=== PATIENT | male | born 1995 | race Caucasian/White ===

== ENCOUNTER 2022-06-21 17:02 | Emergency (ER) | payer OTHER, SELFPAY ==
[2022-06-21 17:23] VITALS: BP 119/68; PULSE 55; RESP 18; TEMP 36.7; O2SAT 98; BMI 21.9
--- NOTE | 2022-06-21 17:24 | ED_ITS ---
HPI - Eye Problem General Chief complaint: Eye Problems <YA Conway - Last Filed: 06/21/22 17:27> Stated complaint: eye injury <YA Conway - Last Filed: 06/21/22 17:27> Time Seen by Provider: 06/21/22 18:10 <YA Conway - Last Filed: 06/21/22 17:27> Source: patient, RN notes reviewed and old records reviewed <Noam Crane - Last Filed: 06/21/22 18:24> Mode of arrival: ambulatory <Noam Crane - Last Filed: 06/21/22 18:24> History of Present Illness HPI Narrative: 27-year-old male presents for evaluation of right eyelid redness and swelling. He reports this started 2 days ago but got worse overnight. Reports this morning was unable to open the eye but he is able to do so now He did not get anything in the eye that he can remember Patient does not believe there was any injury to the eye He reports that he has a frequent history of styes He has seen ophthalmology in the past for this He reports that he has been using warm compresses without any improvement He wears glasses but not contacts No other complaints or concerns at this time <Noam Crane - Last Filed: 06/21/22 18:24> Related Data Home medications: Previous Rx's Medication Instructions Recorded erythromycin 5 mg/gram (0.5 %) eye 1 appl ophthalmic-Right TID #3.5 06/21/22 ointment grams <YA Conway - Last Filed: 06/21/22 17:27> Allergies/adverse reactions: Allergies Allergy/AdvReac Type Severity Reaction Status Date / Time No Known Allergies Allergy Verified 06/21/22 17:25 <YA Conway - Last Filed: 06/21/22 17:27> Review of Systems Constitutional: Constitutional: Denies headache(s) <Noam Crane - Last Filed: 06/21/22 18:24> Eyes: Eyes: Reports eye discharge, Reports irritation, Reports itchy eyes, Denies loss of vision, Denies other visual disturbances, Reports eye pain and Denies seeing flashes <Noam Crane - Last Filed: 06/21/22 18:24> ENT: Denies headache(s) <Noamhiral Crane - Last Filed: 06/21/22 18:24> Neurologic: Denies headache(s) and Denies loss of vision <Noamhiral Crane - Last Filed: 06/21/22 18:24> Allergic/Immunologic: Allergic/Immunologic: Reports itchy eyes <Noam LeenaMaximilianoMatthias - Last Filed: 06/21/22 18:24> Physical Exam Vital Signs: Vital Signs: Last Vital Signs Temp 98.0 F 06/21/22 17:23 Pulse 55 06/21/22 17:23 Resp 18 06/21/22 17:23 BP 119/68 06/21/22 17:23 Pulse Ox 98 06/21/22 17:23 O2 Del Method Room Air 06/21/22 17:23 BMI result Body Mass Index 21.9 <YA Conway - Last Filed: 06/21/22 17:27> Vital Signs: Last Vital Signs Temp 98.0 F 06/21/22 17:23 Pulse 55 06/21/22 17:23 Resp 18 06/21/22 17:23 BP 119/68 06/21/22 17:23 Pulse Ox 98 06/21/22 17:23 O2 Del Method Room Air 06/21/22 17:23 BMI result Body Mass Index 21.9 <Noam OMaximilianoMatthias - Last Filed: 06/21/22 18:24> Const: General: cooperative, healthy appearing and comfortable <Noam [place] - Last Filed: 06/21/22 18:24> Nutritional Appearance: well nourished <Noam OMaximilianoMatthias - Last Filed: 06/21/22 18:24> Orientation/consciousness: patient oriented x3 <Noam LeenaMaximilianoMatthias - Last Filed: 06/21/22 18:24> Limitations: no limitations <Noamhiral Crane - Last Filed: 06/21/22 18:24> Eyes: Other: Patient has right upper eyelid edema with a stye approximately the the center of the eyelid. The conjunctiva is normal without injection, no obvious foreign body noted. No increased fluorescein uptake or ulcerations noted. Extraocular motions intact. There is no erythema in the periorbital region of sided right upper eyelid. Nontender with palpation around the orbit <Noam Crane - Last Filed: 06/21/22 18:24> Neuro: General: patient oriented x3 <Noam Crane - Last Filed: 06/21/22 18:24> Course Course Course Narrative: RME - patient stated he had pain in his right eye that began 3 days ago followed by swelling the next day. He denied any trauma or injury. He stated he feels like there is something in his eye and has crusting when he wakes up in the morning. Patient denies vision changes. He normally wears glasses, no contacts. Plan: fluorescine, tetracaine <YA Conway - Last Filed: 06/21/22 17:27> Medications Administered Discontinued Medications Generic Name Dose Route Start Last Admin Trade Name Freq PRN Reason Stop Dose Admin Fluorescein Sodium 1 strip 06/21/22 17:26 06/21/22 17:48 Fluorescein Sodium Strip EYE-RIGHT 06/21/22 17:27 1 strip ONCE ONE Administration Tetracaine HCl 1 drop 06/21/22 17:26 06/21/22 17:48 Tetracaine Hcl/Pf 0.5% Oph Maggie 4 Ml Drops EYE-RIGHT 06/21/22 17:27 1 drop ONCE ONE Administration <YA Conway - Last Filed: 06/21/22 17:27> Medications Administered Discontinued Medications Generic Name Dose Route Start Last Admin Trade Name Freq PRN Reason Stop Dose Admin Fluorescein Sodium 1 strip 06/21/22 17:26 06/21/22 17:48 Fluorescein Sodium Strip EYE-RIGHT 06/21/22 17:27 1 strip ONCE ONE Administration Tetracaine HCl 1 drop 06/21/22 17:26 06/21/22 17:48 Tetracaine Hcl/Pf 0.5% Oph Maggie 4 Ml Drops EYE-RIGHT 06/21/22 17:27 1 drop ONCE ONE Administration <Noam Crane - Last Filed: 06/21/22 18:24> Medical Decision Making Medical Decision Making MDM Narrative: Patient will be given a prescription for erythromycin ointment to treat a stye with associated blepharitis. He has been using warm compresses thus far without improved. 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 No evidence of preseptal cellulitis or foreign body <Noam Crane - Last Filed: 06/21/22 18:24> Differential Diagnosis Blepharitis Stye Hordeola Conjunctivitis Foreign body Corneal abrasion Preseptal cellulitis <Noam Crane - Last Filed: 06/21/22 18:24> Discharge Plan Discharge Clinical Impression: Blepharitis of eyelid of right eye <YA Conway - Last Filed: 06/21/22 17:27> Patient Disposition: Home, Self-Care <YA Conway - Last Filed: 06/21/22 17:27> Instructions: Blepharitis (ED) <YA Conway - Last Filed: 06/21/22 17:27> Additional Instructions: Use warm compresses every 1-2 hours for 10 minutes at a time to the right eye. Apply erythromycin ointment 3 times daily for 5 days Return to the ER if you notice redness surrounding her eye or increased pain or vision loss Call your tape making machine operator to schedule follow-up <YA Conway - Last Filed: 06/21/22 17:27> Prescriptions: New erythromycin 5 mg/gram (0.5 %) ointment 1 appl ophthalmic-Right TID Qty: 3.5 0RF <YA Conway - Last Filed: 06/21/22 17:27>
[2022-06-21] MEDS: Fluorescein Sodium STRIP 1 STRIP EYE-RIGHT (17:48)
[2022-06-21] MEDS: Tetracaine HCl/PF 0.5% Oph Sol 4 ML DROPS 1 DROP EYE-RIGHT (17:48)
--- NOTE | 2022-06-21 17:49 | PC.NURSE ---
TETRACAINE AND BIO-NASREEN AT BEDSIDE, PT RIGHT EYELID, RED WITH EDEMA, SMALL RAISED BUMP APPRECIATED IN CENTER OF UPPER LID. PT STS THAT IT IS SLIGHTLY ITCHY, STS THIS MORNING HE WAS UNABLE TO OPEN HIS EYE, HOWEVER IT HAS IMPROVED TO THE POINT WHERE HE CAN OPEN THE EYE. PT DENIES VISUAL DISTURBANCE. SIGNIFICANT OTHER AT BEDSIDE, CALL [facility] WITHIN REACH
== END 2022-06-21 18:36 | disposition home or self-care (01) ==
LOC: HO.ED 18:28
PROVIDERS: Emergency Provider Emergency Medicine
DX: H00.011 Hordeolum externum right upper eyelid (principal)
CPT/HCPCS: 99282; 99283